=== PATIENT | male | born 1955 | race African-American/Black ===

== ENCOUNTER 2017-11-12 07:41 | Emergency (ER) | payer SELFPAY ==
[~2017-11-12] VITALS: Ht 182.9 cm; Wt 102.1 kg
[2017-11-12] MEDS ORDERED: ALBUTEROL SULF 2.5 MG/0.5ML(0.5%) NEB SOLN NEB ONE (08:15)
[2017-11-12] MEDS ORDERED: IPRATROPIUM BROM 0.5 MG/2.5ML INH SOL NEB ONE (08:15)
[2017-11-12 08:18] LABS: Basophils # (auto) 0.1 uL; Eosinophils # (auto) 0.2 uL; Lymphocytes # (auto) 3.4 uL; Monocytes # (auto) 0.5 uL; Neutrophils # (auto) 2.5 uL; Platelet Count (auto) 181 10^3/uL (140-450); White Blood Cell 6.6 10^3/uL (4.4-10.8)
[2017-11-12 08:20] LABS: Eosinophils % (auto) 2.9 % (0.0-7.0); Hematocrit 50.4 % (41.0-53.0); Hemoglobin 16.6 g/dL (13.5-17.5); Lymphocytes % (auto) 51.1 % (10.0-50.0); Mean Corpuscular Hemoglobin 25.1 pg (28.0-32.0); Mean Corpuscular Volume 76.2 fL (80.0-100.0); Monocytes % (auto) 7.3 % (0.0-12.0); Neutrophils % (auto) 37.7 % (37.0-80.0); Nucleated Red Blood Cells % 0.2 %; Red Blood Cells 6.61 10^6/uL (4.5-5.90); Red Cell Distribution Width 16.4 % (11.8-14.3)
[2017-11-12 08:35] LABS: Alanine Aminotransferase 38 U/L (16-61); Albumin 3.3 g/dL (3.4-5.0); Anion Gap 9 (5-15); Aspartate Aminotransferase 24 U/L (15-37); BUN/Creatinine Ratio 11.9; Blood Urea Nitrogen 15 mg/dL (7-18); Calcium 8.3 mg/dL (8.5-10.1); Carbon Dioxide 22 mmol/L (21-32); Chloride 108 mmol/L (98-107); GFR African American 75 mL/min; GFR Non-African American 62 mL/min; Glucose 136 mg/dL (74-106); Potassium 4.1 mmol/L (3.5-5.1); Sodium 139 mmol/L (136-145)
[2017-11-12 08:38] LABS: Alkaline Phosphatase 72 U/L (45-117); Bilirubin, Total 0.3 mg/dL (0.2-1.0); Total Protein 8.3 g/dL (6.4-8.2)
[2017-11-12 11:02] VITALS: BP 139/101
== END 2017-11-12 11:07 | disposition home or self-care (01) ==
LOC: ER 07:41
DX: J45.909 Unspecified asthma, uncomplicated (principal); I10 Essential (primary) hypertension; E44.1 Mild protein-calorie malnutrition; Z68.30 Body mass index [BMI] 30.0-30.9, adult
CPT/HCPCS: 36415; 71045; 80053; 85025; 94640

== ENCOUNTER 2020-04-25 13:04 | Inpatient (IN) | payer SELFPAY ==
[~2020-04-25] VITALS: Ht 190.5 cm; Wt 92.9 kg
[2020-04-25] MEDS ORDERED: ACETAMINOPHEN 325 MG TAB PO ONE (14:00)
[2020-04-25] MEDS ORDERED: ZINC SULFATE 220mg CAP or TAB PO ONE (14:15)
[2020-04-25] MEDS ORDERED: DexAMETHasone 4 MG TAB PO ONE (14:15)
[2020-04-25] MEDS ORDERED: AZITHROMYCIN 500MG/ 250ML 250 ML IV ONE (14:15)
[2020-04-25] MEDS ORDERED: ASCORBIC ACID 500 MG TAB PO ONE (14:15)
[2020-04-25 15:24] LABS: Basophils # (auto) 0 10 ^3/uL (0-0.2); Eosinophils # (auto) 0 10 ^3/uL (0-0.8); Lymphocytes # (auto) 1.4 10 ^3/uL (0.4-5.4); Mean Corpuscular Volume 74.8 fL (80.0-100.0); Monocytes # (auto) 0.6 10 ^3/uL (0-1.3)
[2020-04-25 15:26] LABS: Basophils % (auto) 0.4 % (0.0-2.0); Hematocrit 46.1 % (41.0-53.0); Hemoglobin 15.1 g/dL (13.5-17.5); Lymphocytes % (auto) 18.4 % (10.0-50.0); Mean Corpuscular Hemoglobin 24.5 pg (28.0-32.0); Mean Corpuscular Hgb Conc. 32.7 g/dL (32.0-36.0); Neutrophils # (auto) 5.6 10 ^3/uL (1.6-8.6); Neutrophils % (auto) 73.2 % (37.0-80.0); Nucleated Red Blood Cells % 0.1 %; Platelet Count (auto) 193 10^3/uL (140-450); Red Blood Cells 6.17 10^6/uL (4.5-5.90); Red Cell Distribution Width 16.8 % (11.8-14.3); White Blood Cell 7.6 10^3/uL (4.4-10.8)
[2020-04-25 15:38] LABS: Albumin 3.1 g/dL (3.4-5.0); Anion Gap 10 (5-15); Blood Urea Nitrogen 16 mg/dL (7-18); Calcium 8.2 mg/dL (8.5-10.1); Carbon Dioxide 24 mmol/L (21-32); Chloride 95 mmol/L (98-107); Glucose 155 mg/dL (74-106); Magnesium 2.3 mg/dL (1.6-2.6); Potassium 3.4 mmol/L (3.5-5.1); Sodium 129 mmol/L (136-145)
[2020-04-25 15:42] LABS: Lactic Acid w/Reflex 2.3 mmol/L (0.4-2.0)
[2020-04-25 15:45] LABS: Alanine Aminotransferase 42 U/L (16-61); Alkaline Phosphatase 54 U/L (45-117); Aspartate Aminotransferase 44 U/L (15-37); Bilirubin, Total 0.7 mg/dL (0.2-1.0); GFR African American 70 mL/min; GFR Non-African American 58 mL/min; INR 1.12 (0.9-1.15)
[2020-04-25] MEDS ORDERED: MORPHINE SULF INJ 2 MG/ML SYRINGE 1ML IV PRN ×2 (17:30)
[2020-04-25] MEDS ORDERED: SOD CHL 0.45% WITH 20MEQ KCL 1,000 ML IV ONE (17:30)
[2020-04-25] MEDS ORDERED: DEXTROSE (50%) 50ML SYRG IV PRN (17:30)
[2020-04-25] MEDS ORDERED: NITROGLYCERIN 0.4 MG SL TAB SL PRN (17:30)
[2020-04-25] MEDS ORDERED: ACETAMINOPHEN 500 MG TAB PO PRN (17:30)
[2020-04-25] MEDS ORDERED: ONDANSETRON HCL 4 MG/2 ML VIAL IV PRN (17:30)
[2020-04-25 18:35] LABS: CRP High Sensitivity 8.27 mg/dL (< 0.3)
[2020-04-25] MEDS: cefTRIAXone 1GM/50ML D5W 50 ML IV SCH (19:02)
[2020-04-25] MEDS: CHOLECALCIFEROL (VITD3) 2,000 UNIT CAP PO SCH (19:02)
[2020-04-25] MEDS: BUDESONIDE (INHALATION) 180 MCG IH IN SCH (23:03)
[2020-04-25] MEDS: ACCU-CHEK COMFORT CURVE STRIP VI SCH (23:35)
[2020-04-25] MEDS: ENOXAPARIN SOD 40 MG/0.4 ML SYRINGE SC SCH (23:35)
[2020-04-25] MEDS: InsuLIN REG 1unit/0.01ml Soln (100units/ml) SC SCH (23:35)
[2020-04-25] MEDS ORDERED: POTASSIUM CHL 20 Meq TABLET PO ONE (23:45)
[2020-04-26] MEDS: ACCU-CHEK COMFORT CURVE STRIP VI SCH ×4 (07:57→22:46)
[2020-04-26] MEDS: InsuLIN REG 1unit/0.01ml Soln (100units/ml) SC SCH ×4 (08:05→22:47)
[2020-04-26] MEDS: cefTRIAXone 1GM/50ML D5W 50 ML IV SCH (08:49)
[2020-04-26] MEDS ORDERED: REMDESIVIR PER PHARMACY 0 ML IV SCH (10:00)
[2020-04-26] MEDS: DexAMETHasone SOD PHOS 10MG/1ML VIAL INJ IV SCH (10:04)
[2020-04-26] MEDS: ENOXAPARIN SOD 40 MG/0.4 ML SYRINGE SC SCH ×2 (10:04→22:47)
[2020-04-26] MEDS: AZITHROMYCIN 500MG/D5WorNS 250ml IV SCH (10:04)
[2020-04-26] MEDS: FAMOTIDINE 20 MG TAB PO SCH (10:04)
[2020-04-26] MEDS: ZINC SULFATE 220mg CAP or TAB PO SCH (10:04)
[2020-04-26] MEDS: ASCORBIC ACID 1,000 MG TAB PO SCH (10:04)
[2020-04-26] MEDS: CHOLECALCIFEROL (VITD3) 2,000 UNIT CAP PO SCH (10:04)
[2020-04-26] MEDS: BUDESONIDE (INHALATION) 180 MCG IH IN SCH ×2 (11:18→21:49)
[2020-04-26 11:50] LABS: Anion Gap 12 (5-15); BUN/Creatinine Ratio 17.1; Blood Urea Nitrogen 22 mg/dL (7-18); Carbon Dioxide 21 mmol/L (21-32); Chloride 98 mmol/L (98-107); GFR African American 72 mL/min; GFR Non-African American 60 mL/min; Glucose 293 mg/dL (74-106); Potassium 3.4 mmol/L (3.5-5.1); Sodium 131 mmol/L (136-145)
[2020-04-26 11:51] LABS: Alanine Aminotransferase 38 U/L (16-61); Albumin 2.8 g/dL (3.4-5.0); Alkaline Phosphatase 53 U/L (45-117); Aspartate Aminotransferase 40 U/L (15-37); Bilirubin, Total 0.3 mg/dL (0.2-1.0); Calcium 8.8 mg/dL (8.5-10.1); Total Protein 7.9 g/dL (6.4-8.2)
[2020-04-26] MEDS: ALBUTEROL SULF HFA 90MCG INH 200DOSE IN PRN ×2 (19:00→21:50)
[2020-04-27] MEDS: HYDROcodone-ACET 5/325MG TAB PO PRN ×2 (06:25→19:03)
[2020-04-27] MEDS: ACCU-CHEK COMFORT CURVE STRIP VI SCH ×4 (06:55→22:00)
[2020-04-27] MEDS: InsuLIN REG 1unit/0.01ml Soln (100units/ml) SC SCH ×3 (06:56→16:55)
[2020-04-27] MEDS: BUDESONIDE (INHALATION) 180 MCG IH IN SCH ×2 (08:24→19:44)
[2020-04-27] MEDS: ALBUTEROL SULF HFA 90MCG INH 200DOSE IN PRN ×2 (08:24→19:44)
[2020-04-27] MEDS: FAMOTIDINE 20 MG TAB PO SCH (08:47)
[2020-04-27] MEDS: cefTRIAXone 1GM/50ML D5W 50 ML IV SCH (08:47)
[2020-04-27] MEDS: ZINC SULFATE 220mg CAP or TAB PO SCH (08:47)
[2020-04-27] MEDS: DexAMETHasone SOD PHOS 10MG/1ML VIAL INJ IV SCH (08:47)
[2020-04-27] MEDS: AZITHROMYCIN 500MG/D5WorNS 250ml IV SCH (08:47)
[2020-04-27] MEDS: ENOXAPARIN SOD 40 MG/0.4 ML SYRINGE SC SCH ×2 (08:47→23:48)
[2020-04-27] MEDS: ASCORBIC ACID 1,000 MG TAB PO SCH (08:47)
[2020-04-27] MEDS: CHOLECALCIFEROL (VITD3) 2,000 UNIT CAP PO SCH (10:05)
[2020-04-27 23:00] VITALS: BP 127/93
--- NOTE | 2020-04-27 23:00 | NUR ---
Telemetry admit from ER GONZALEZ AYALA JR JACQUE admitted to Telemetry unit. Patient oriented to RANDA NAGY, RN primary RN, unit, room, bed, and unit policies regarding patient care and visiting hours. Patient now on continuous telemetry monitoring, tele box # 27 and telemetry reading on arrival to unit is NSR 81. Patient placed on bedside oxygen, weighed by bedscale and encouraged to call if they need something. All questions and concerns addressed, patient verbalized understanding. Patient is on room air saturation is 96% no sob or distress noted. will continue care
--- NOTE | 2020-04-27 23:15 | NUR ---
Patient is refusing convolasent plasma. Patient states "I feel fine now, I dont think I need it. I needed it when I first came to the ER." Educated patient on risks and benefits. Patient verbalized understanding, and is still refusing plasma. Will make day shift RN aware. Continue care.
[2020-04-27 23:58] VITALS: BP 127/93
[2020-04-28] MEDS: InsuLIN REG 1unit/0.01ml Soln (100units/ml) SC SCH ×4 (00:11→17:00)
--- NOTE | 2020-04-28 04:10 | NUR ---
Influenza swab sent to lab. Patient tolerated well. Will continue to monitor.
[2020-04-28 05:00] VITALS: BP 142/91
[2020-04-28] MEDS: ACCU-CHEK COMFORT CURVE STRIP VI SCH ×3 (06:21→17:00)
[2020-04-28] MEDS ORDERED: INSULIN LANTUS (GLARGINE) 1 /0.01ml (100units/ml) SC SCH (07:00)
--- NOTE | 2020-04-28 07:28 | NUR ---
Closing note Endorsed care to day shift RN. No sob or distress noted.
[2020-04-28 09:00] VITALS: BP 129/85
[2020-04-28] MEDS: cefTRIAXone 1GM/50ML D5W 50 ML IV SCH (09:41)
[2020-04-28] MEDS: DexAMETHasone SOD PHOS 10MG/1ML VIAL INJ IV SCH (09:41)
[2020-04-28] MEDS: ASCORBIC ACID 1,000 MG TAB PO SCH (09:42)
[2020-04-28] MEDS: CHOLECALCIFEROL (VITD3) 2,000 UNIT CAP PO SCH (09:42)
[2020-04-28] MEDS: ENOXAPARIN SOD 40 MG/0.4 ML SYRINGE SC SCH (09:42)
[2020-04-28] MEDS: ZINC SULFATE 220mg CAP or TAB PO SCH (09:42)
[2020-04-28] MEDS: FAMOTIDINE 20 MG TAB PO SCH (09:42)
[2020-04-28] MEDS: AZITHROMYCIN 500MG/D5WorNS 250ml IV SCH (09:42)
[2020-04-28] MEDS: BUDESONIDE (INHALATION) 180 MCG IH IN SCH (10:00)
--- NOTE | 2020-04-28 11:36 | NUR ---
Assessment Patient is a 79 year old male, patient is alert and oriented. Patient cognitive abilities are intact. Patient stated prior to being admitted to [facility], he could do all ADL's and ambulate independently. Patient stated that he is a diabetic. Patient stated that he lives with his Rita ([phone]), patient has plans to return home post discharge. Patient is retired and receives social security as income. Patient stated that he has transportation post discharge. Patient is receptive to receive Advance Directive form prior to discharge
[2020-04-28 12:01] LABS: Albumin 2.7 g/dL (3.4-5.0); Calcium 8.8 mg/dL (8.5-10.1); Potassium 3.8 mmol/L (3.5-5.1)
[2020-04-28 12:07] LABS: BUN/Creatinine Ratio 20.5; Bilirubin, Total 0.5 mg/dL (0.2-1.0); Total Protein 7.6 g/dL (6.4-8.2)
[2020-04-28 12:16] LABS: Cholesterol 202 mg/dL (< 200); HDL Cholesterol 33 mg/dL (40-59); LDL Cholesterol 135 mg/dL (< 100); Triglycerides 192 mg/dL (< 150)
[2020-04-28 12:19] LABS: Basophils # (auto) 0 10 ^3/uL (0-0.2); Eosinophils # (auto) 0 10 ^3/uL (0-0.8); Nucleated Red Blood Cells % 0.1 %
[2020-04-28 12:20] LABS: Basophils % (auto) 0.2 % (0.0-2.0); Hematocrit 45.7 % (41.0-53.0); Hemoglobin 15.3 g/dL (13.5-17.5); Lymphocytes # (auto) 1.1 10 ^3/uL (0.4-5.4); Lymphocytes % (auto) 11.4 % (10.0-50.0); Mean Corpuscular Hgb Conc. 33.4 g/dL (32.0-36.0); Mean Corpuscular Volume 74.8 fL (80.0-100.0); Monocytes # (auto) 0.7 10 ^3/uL (0-1.3); Monocytes % (auto) 7.7 % (0.0-12.0); Neutrophils # (auto) 7.8 10 ^3/uL (1.6-8.6); Neutrophils % (auto) 80.7 % (37.0-80.0); Platelet Count (auto) 268 10^3/uL (140-450); Red Blood Cells 6.11 10^6/uL (4.5-5.90); Red Cell Distribution Width 16.7 % (11.8-14.3); White Blood Cell 9.6 10^3/uL (4.4-10.8)
[2020-04-28] MEDS: ALBUTEROL SULF HFA 90MCG INH 200DOSE IN PRN (12:58)
[2020-04-28 13:00] VITALS: BP_SYST 122; BP_SYST 142; BP_DIAS 65; BP_DIAS 93
[2020-04-28] MEDS ORDERED: PANT40TA2 PO (16:12)
[2020-04-28] MEDS ORDERED: ASPI-378 PO (16:12)
[2020-04-28] MEDS ORDERED: METF-372 PO (16:12)
[2020-04-28] MEDS ORDERED: CHOL1CAP47 PO (16:12)
[2020-04-28] MEDS ORDERED: ALBUAER3 IN (16:12)
[2020-04-28] MEDS ORDERED: ZINC220T6 PO (16:12)
[2020-04-28] MEDS ORDERED: INSLANTI SC (16:12)
[2020-04-28] MEDS ORDERED: METH4PAK PO (16:12)
[2020-04-28] MEDS ORDERED: ASCO10003 PO (16:12)
[2020-04-28] MEDS ORDERED: DOXY-286 PO (16:14)
--- NOTE | 2020-04-28 18:40 | NUR ---
Discharge instructions given as ordered. Encourage to follow up with PMD as instructed. All questions and concerns addressed. Patient verbalized understanding. Medication reconciliation form completed and copy given to patient. New prescription medication delivered to bedside and patient instructed on use side effects contraindications he verbalized understanding. IV removed with catheter intact, pressure dressing applied, Telemetry unit returned to ICU. Patient taken to vehicle via wheelchair with all personal belongings, accompanied by staff. No distress noted at time of departure or sob.
== END 2020-04-28 18:40 | disposition home or self-care (01) | DRG 871 ==
LOC: ER 13:04 → TELE 17:31 → TELE-EAST 04-27 23:30
PROVIDERS: ADMIT Nurse Practitioner Acute Care; ATTEND Internal Medicine
PROC: XW033E5 Introduction of Remdesivir Anti-infective into Peripheral Vein, Percutaneous Approach, New Technology Group 5 (ICD-10-PCS; principal; 2020-04-26)
DX: A41.89 Other specified sepsis (principal); J12.89 Other viral pneumonia; J96.01 Acute respiratory failure with hypoxia; N17.0 Acute kidney failure with tubular necrosis; U07.1 COVID-19; D68.69 Other thrombophilia; E87.1 Hypo-osmolality and hyponatremia; E11.22 Type 2 diabetes mellitus with diabetic chronic kidney disease; E55.9 Vitamin D deficiency, unspecified; E78.5 Hyperlipidemia, unspecified; E87.6 Hypokalemia; F17.210 Nicotine dependence, cigarettes, uncomplicated; I12.9 Hypertensive chronic kidney disease with stage 1 through stage 4 chronic kidney disease, or unspecified chronic kidney disease; N18.9 Chronic kidney disease, unspecified
CPT/HCPCS: 36415; 71045; 80053; 80061; 82306; 82728; 82962; 83036; 83605; 83615; 83735; 84443; 84484; 85025; 85610; 85730; 86141; 86850; 86900; 86901; 87040; 87426; 87804; 93005; 94640; 96365; 96366; G0378; J0696; J1100; J1815